=== PATIENT | female | born 1950 | race Caucasian/White ===

== ENCOUNTER 2023-01-19 13:48 | Emergency (ER) | payer MEDICARE | END 2023-01-19 15:58 | disposition home or self-care (01) | LOC: CSHERS 13:48 | DX: S63.502A Unspecified sprain of left wrist, initial encounter (principal); E11.9 Type 2 diabetes mellitus without complications; E78.5 Hyperlipidemia, unspecified; I10 Essential (primary) hypertension; M19.90 Unspecified osteoarthritis, unspecified site; W18.30XA Fall on same level, unspecified, initial encounter ==

== ENCOUNTER 2023-06-01 17:13 | Inpatient (IN) | payer MEDICARE ==
[~2023-06-01 17:13] MED LIST: Iopamidol 370 76% 100 ML VIAL ONE
[2023-06-01] MEDS ORDERED: Adenosine 6 MG/2 ML VIAL ONE (17:35)
[2023-06-01 17:45] LABS: #Basophils 0.1 10x3/uL (0.0-0.2); #Eosinphils 0.3 10x3/uL (0.0-0.5); #Monocytes 0.9 10x3/uL (0.0-1.1); #Neutrophils 10.8 10x3/uL (1.5-8.4); %Eosinophils 2.1 % (0.0-6.0); %Lymphocytes 15.6 % (18.0-47.0); %Monocytes 5.9 % (0.0-10.0); %Neutrophils 74.8 % (40.0-75.0); Hematocrit 38.1 % (34.9-44.5); Hemoglobin 12.4 g/dL (12.0-15.5); Mean Corpuscular HGB CONC 32.5 g/dL (32.0-36.0); Mean Corpuscular Hemoglobin 29.5 pg (27.0-33.0); Mean Corpuscular Volume 90.5 fl (81.6-98.3); Mean Platelet Volume 10.2 fl (7.4-10.4); Platelet Count 578 10x3/uL (150-450); RBC Distribution Width 13.8 % (11.5-14.5); Red Blood Cell (RBC) Count 4.21 10x6/uL (3.90-5.03); White Blood Cell (WBC) Count 14.5 10x3/uL (3.5-10.5)
[2023-06-01 17:54] LABS: ALT (SGPT) 32 U/L (8-55); AST (SGOT) 24 U/L (5-34); Albumin 4.4 g/dL (3.4-4.8); Alkaline Phosphatase 110 U/L (40-110); Anion Gap 21 mmol/L (10-20); BUN (Urea Nitrogen) 17 mg/dL (9.8-20.1); Bilirubin, Total 0.2 mg/dL (0.2-1.2); Calc. Creatinine Clearance 0 mL/min (70-130); Calcium 9.6 mg/dL (7.8-10.44); Carbon Dioxide 15 mmol/L (23-31); Chloride 99 mmol/L (98-107); Estimated GFR 47; Globulin 3.2 g/dL (2.4-3.5); Glucose 195 mg/dL (83-110); Potassium 4.9 mmol/L (3.5-5.1); Protein, Total 7.6 g/dL (5.8-8.1); Sodium 130 mmol/L (136-145)
[2023-06-01 17:58] LABS: Troponin I Less than 0.010 ng/mL (< 0.028)
[2023-06-01 20:25] LABS: Troponin I Less than 0.010 ng/mL (< 0.028)
[2023-06-01] MEDS ORDERED: Nitroglycerin 0.4 MG TAB (25 Tab Bottle) SL PRN (22:30)
[2023-06-01] MEDS ORDERED: HumaLOG 300 UNITS/3 ML VIAL SC PRN (22:41)
[2023-06-01] MEDS ORDERED: Dextrose 50% Abboject 50 ML SYRINGE SLOW IVP PRN (22:41)
[2023-06-01] MEDS ORDERED: Glucagon 1 MG/ML KIT IM PRN (22:41)
[2023-06-01] MEDS ORDERED: Dextrose 5% in Water 1,000 ML IV PRN (22:41)
[2023-06-01] MEDS ORDERED: ALPRAZolam 0.5 MG TAB PO PRN (22:43)
[2023-06-01] MEDS ORDERED: Meclizine HCl 25 MG TAB PO PRN (22:43)
[2023-06-01] MEDS ORDERED: Ventolin HFA Inhaler 60 PUFF INHALER INH PRN (22:43)
[2023-06-01 22:57] VITALS: BMI 30.4
[2023-06-01] MEDS ORDERED: Aspirin 325 MG TAB PO SCH (23:00)
[2023-06-01] MEDS: Sodium Chloride 0.9% 1,000 ML IV SCH (23:20)
[2023-06-01 23:22] LABS: INR-International Normal Ratio 0.9; PTT 25.4 sec (22.0-33.0); Prothrombin Time 10.2 sec (9.5-12.1)
[2023-06-01 23:31] LABS: Troponin I 0.017 ng/mL (< 0.028)
[2023-06-01] MEDS ORDERED: Acetaminophen 500 MG TAB PO SCH (23:45)
[2023-06-01] MEDS ORDERED: diphenhydrAMINE 25 MG CAP PO SCH (23:45)
[2023-06-02 06:54] LABS: Anion Gap 14 mmol/L (10-20); BUN (Urea Nitrogen) 12 mg/dL (9.8-20.1); Calc. Creatinine Clearance 73 mL/min (70-130); Calcium 9.4 mg/dL (7.8-10.44); Carbon Dioxide 23 mmol/L (23-31); Cardiac Risk 3.8 (Less than 4.5); Chloride 101 mmol/L (98-107); Cholesterol 145 mg/dl (< 200 Desired); Estimated GFR 69; Glucose 93 mg/dL (83-110); HDL Cholesterol 38 mg/dL (>60 Neg Risk); LDL Cholesterol, Calculated 85 mg/dL; Magnesium 1.9 mg/dL (1.6-2.6); Potassium 4.2 mmol/L (3.5-5.1); Sodium 134 mmol/L (136-145); Triglycerides 112 mg/dL (Less than 150)
[2023-06-02 06:55] LABS: #Basophils 0.1 10x3/uL (0.0-0.2); #Eosinphils 0.3 10x3/uL (0.0-0.5); #Monocytes 0.8 10x3/uL (0.0-1.1); #Neutrophils 6.7 10x3/uL (1.5-8.4); %Eosinophils 3.4 % (0.0-6.0); %Lymphocytes 18.2 % (18.0-47.0); %Monocytes 8.3 % (0.0-10.0); %Neutrophils 68.6 % (40.0-75.0); Hematocrit 32.8 % (34.9-44.5); Hemoglobin 10.7 g/dL (12.0-15.5); Mean Corpuscular HGB CONC 32.6 g/dL (32.0-36.0); Mean Corpuscular Hemoglobin 29.5 pg (27.0-33.0); Mean Corpuscular Volume 90.4 fl (81.6-98.3); Mean Platelet Volume 10.7 fl (7.4-10.4); Platelet Count 458 10x3/uL (150-450); RBC Distribution Width 13.8 % (11.5-14.5); Red Blood Cell (RBC) Count 3.63 10x6/uL (3.90-5.03); White Blood Cell (WBC) Count 9.8 10x3/uL (3.5-10.5)
[2023-06-02] MEDS ORDERED: Ferrous Sulfate 325 MG TAB PO SCH (08:00)
[2023-06-02] MEDS ORDERED: Amlodipine 10 MG TAB PO SCH (09:00)
[2023-06-02] MEDS ORDERED: Atorvastatin Calcium 40 MG TAB PO SCH (09:00)
[2023-06-02] MEDS ORDERED: Aspirin 81 mg Enteric Coated Tablet PO SCH (09:00)
[2023-06-02] MEDS: Sodium Chloride 0.9% 1,000 ML IV SCH (10:00)
[2023-06-02] MEDS ORDERED: Acetaminophen 500 MG TAB PO PRN (11:06)
[2023-06-02 16:42] VITALS: BP 134/76; TEMP 98.3
[2023-06-02] MEDS ORDERED: diphenhydrAMINE 25 MG CAP PO SCH (21:00)
[2023-06-02] MEDS ORDERED: Acetaminophen 500 MG TAB PO SCH (21:00)
[2023-06-03] MEDS ORDERED: dilTIAZem CD 120 MG CAP PO SCH (09:00)
== END 2023-06-02 18:12 | disposition home or self-care (01) | DRG 281 ==
LOC: CSHERS 17:13 → CSHTELE 22:47 → OBSVTOIN 06-02 10:34 → INTOOBSV 06-02 10:34
PROVIDERS: ADMIT Family Medicine; ATTEND Hospitalist
DX: I16.1 Hypertensive emergency (principal); I21.4 Non-ST elevation (NSTEMI) myocardial infarction; I47.1 Supraventricular tachycardia; R06.02 Shortness of breath; E78.5 Hyperlipidemia, unspecified; I10 Essential (primary) hypertension; F41.9 Anxiety disorder, unspecified; M79.7 Fibromyalgia; M19.90 Unspecified osteoarthritis, unspecified site; R53.1 Weakness; I95.9 Hypotension, unspecified; R00.2 Palpitations; J45.909 Unspecified asthma, uncomplicated; R79.1 Abnormal coagulation profile; K44.9 Diaphragmatic hernia without obstruction or gangrene; K29.70 Gastritis, unspecified, without bleeding; R91.1 Solitary pulmonary nodule; K62.89 Other specified diseases of anus and rectum; E11.42 Type 2 diabetes mellitus with diabetic polyneuropathy; E03.9 Hypothyroidism, unspecified; M81.0 Age-related osteoporosis without current pathological fracture; Z90.89 Acquired absence of other organs; Z88.8 Allergy status to other drugs, medicaments and biological substances; Z79.82 Long term (current) use of aspirin; Z79.890 Hormone replacement therapy; Z79.84 Long term (current) use of oral hypoglycemic drugs; Z79.899 Other long term (current) drug therapy; Z98.891 History of uterine scar from previous surgery; Z87.59 Personal history of other complications of pregnancy, childbirth and the puerperium
CPT/HCPCS: 36416; 71045; 71275; 74174; 80048; 80053; 80061; 83690; 83735; 83880; 84443; 84484; 85025; 85379; 85610; 85730; 93005; 93010; 93306; 93970; 96372; 96374; G0378; J0153; J1650; J7050; Q9967

== ENCOUNTER 2024-06-05 18:39 | Emergency (ER) | payer MEDICARE ==
[2024-06-05] MEDS ORDERED: Acetaminophen 500 MG TAB ONE (19:52)
== END 2024-06-05 21:34 | disposition home or self-care (01) ==
LOC: CSHERS 18:39
DX: S41.111A Laceration without foreign body of right upper arm, initial encounter (principal); M25.571 Pain in right ankle and joints of right foot; M25.561 Pain in right knee; I10 Essential (primary) hypertension; E11.40 Type 2 diabetes mellitus with diabetic neuropathy, unspecified; W17.89XA Other fall from one level to another, initial encounter
CPT/HCPCS: 70450; 72125